=== PATIENT | male | born 1995 | race Caucasian/White ===

== ENCOUNTER 2016-11-05 16:24 | Emergency (ER) | payer OTHER ==
[~2016-11-05] VITALS: Ht 157.5 cm; Wt 78.0 kg
[2016-11-05 16:26] VITALS: Ht 157.5 cm; Wt 78.0 kg
[2016-11-05] MEDS ORDERED: LIDOCAINE 2% (MDV) 20 ML INJ INJ ONE (18:00)
[2016-11-05] MEDS ORDERED: ACET500C5 PO (18:41)
[2016-11-05 18:55] VITALS: BP 129/95; PULSE 64; RESP 16; TEMP 99
--- NOTE | 2016-11-05 23:32 | ERD ---
ER Documentation Chief Complaint Date/Time DATE: 11/05/16 TIME: 23:25 Chief Complaint BELOW LOWER LIP LAC HPI 21-year-old male patient with no significant past medical history presents to the ED complaining of a laceration noted below his lip. States that he was at work and actually ducked down and hit the pole region on his chin region. States that he bit into his lower lip and sustained a laceration. Denies any headache or loss of consciousness. Denies any fever, chills, neck pain, nausea , neck pain, vomiting, weakness, numbness or tingling. Denies taking any blood thinners. States that he is up to date with his tetanus vaccine. ROS All systems reviewed and are negative except as per history of present illness. Medications Home Meds Active Scripts Acetaminophen* (Tylophen*) 500 Mg Capsule, 1 CAP PO Q6H Y for PAIN AND OR ELEVATED TEMP, #20 CAP Prov:CATRACHITA BUCKNER PA-C 11/05/16 Allergies Allergies: Coded Allergies: No Known Allergy (Unverified , 11/05/16) PMhx/Soc Medical and Surgical Hx: pt denies Medical Hx, pt denies Surgical Hx History of Surgery: No Anesthesia Reaction: No Hx Neurological Disorder: No Hx Respiratory Disorders: No Hx Cardiac Disorders: No Hx Psychiatric Problems: No Hx Miscellaneous Medical Probl: No Hx Alcohol Use: No Hx Substance Use: No Hx Tobacco Use: No Smoking Status: Never smoker Physical Exam Vitals Vital Signs Date Time Temp Pulse Resp B/P Pulse Ox O2 Delivery O2 Flow Rate FiO2 11/05/16 18:55 99.0 64 16 129/95 98 Room Air 11/05/16 16:26 98.1 81 20 128/72 99 Physical Exam Const: [id number]-[id number], well-nourished. In no acute distress. Head: Atraumatic, normocephalic. Eyes: Normal Conjunctiva without injection. No purulent discharge. PERRLA. EOMI ENT: Normal external ear. Ear canal without erythema. Tympanic membrane pearly rodney without effusion or bulging. Nasal canal clear with normal turbinates. Moist oropharynx without tonsillar exudates. Non-erythematous pharynx. Uvula midline. No drooling. No trismus. Neck: No cervical midline tenderness. Full range of motion. No meningismus. No cervical lymphadenopathy. No JVD. Resp: Clear to auscultation bilaterally. No wheezing, rhonchi, rales, or crackles. No accessory muscle use. No retractions. Cardio: Regular rate and rhythm. No murmurs, rubs or gallops. Abd: Soft, non tender, non distended. Normal bowel sounds. No palpable masses. No rebound tenderness. No guarding. Negative McBurney's Point. Negative Che's Sign. Skin: Normal skin turgor. No petechiae or rashes. 1 cm horizontal laceration noted on mandible below lower lip. Minimal bleeding noted. No surrounding erythema, edema, fluctuance, induration. Back: No midline tenderness. No CVA tenderness. Ext: No cyanosis, or edema. Distal pulses intact bilaterally. Neur: Awake and alert. Normal gait. Normal coordination. Cranial Nerves II- VII intact. Normal finger to nose. Muscle strength 5/5. Sensation intact. Psych: Normal Mood and Affect Results 24 hrs Current Medications Medications (Trade) Dose Ordered Sig/Loreta Route PRN Reason Start Time Stop Time Status Last Admin Dose Admin Lidocaine (Xylocaine 2% (Mdv) 20 ml) 20 ml ONCE ONCE INJ 11/05/16 18:00 11/05/16 18:01 DC Procedures/MDM 21-year-old male patient with no significant past medical history presents to the ED complaining of a laceration noted at the chin region. Patient is afebrile and nontoxic-appearing. Patient has normal vital signs. Patient gave consent to perform laceration repair. Laceration of the bottom mandibular inferior chin region. Laceration Repair by me: Anesthesia: 4 cc1% lidocaine locally Location: Chin Tendon/Joint/Nerves: No injury Foreign body: None detected after copious irrigation and exploration Technique: 2 6-0 Simple Interrupted Sutures Complexity: No subcutaneous sutures/mucosal repair/ edge excision Post Closure Length: [1] cm Patient's bleeding was easily controlled in the department and there is no indication of anemia. Patient is neurovascularly intact. No evidence of compartment syndrome, neurologic injury, vascular injury, open joint, tendon laceration, or foreign body. Patient is appropriate for outpatient follow up. Low suspicion for intracranial bleed, subarachnoid hemorrhage, epidural hematoma, subdural hematoma, seizure, TIA, stroke, meningitis, carotid dissection or other emergent conditions. 48 hour wound check. Scar minimization instructions given. Instructed patient to return for suture removal in 7-10 days. Discharge medications: Tylenol Follow up with primary care physician in 1-2 days. Instructed patient to return to the ED sooner for any worsening symptoms. Patient's questions were answered. Patient understood and agreed with discharge plan. Patient discharged stable. Departure Diagnosis: Primary Impression: Chin laceration Encounter type: initial encounter Qualified Code: S01.81XA - Chin laceration , initial encounter Condition: Stable Patient Instructions: Laceration, Chin, Suture Or Tape Referrals: [facility] YOU HAVE RECEIVED A MEDICAL SCREENING EXAM AND THE RESULTS INDICATE THAT YOU DO NOT HAVE A CONDITION THAT REQUIRES URGENT TREATMENT IN THE EMERGENCY DEPARTMENT. FURTHER EVALUATION AND TREATMENT OF YOUR CONDITION CAN WAIT UNTIL YOU ARE SEEN IN YOUR DOCTORS OFFICE WITHIN THE NEXT 1-2 DAYS. IT IS YOUR RESPONSIBILITY TO MAKE AN APPOINTMENT FOR FOLOW-UP CARE. IF YOU HAVE A PRIMARY DOCTOR --you should call your primary doctor and schedule an appointment IF YOU DO NOT HAVE A PRIMARY DOCTOR YOU CAN CALL OUR PHYSICIAN REFERRAL HOTLINE AT IF YOU CAN NOT AFFORD TO SEE A PHYSICIAN YOU CAN CHOSE FROM THE FOLLOWING [facility] [address] [facility]. [facility] [address] [facility] DISTRICT[facility] [employer] [facility]. [facility] [address] [facility] [facility] [address] [facility] [facility] [address] [facility]. [facility]. [address] [facility]. [facility] YOU HAVE RECEIVED A MEDICAL SCREENING EXAM AND THE RESULTS INDICATE THAT YOU DO NOT HAVE A CONDITION THAT REQUIRES URGENT TREATMENT IN THE EMERGENCY DEPARTMENT. FURTHER EVALUATION AND TREATMENT OF YOUR CONDITION CAN WAIT UNTIL YOU ARE SEEN IN YOUR DOCTORS OFFICE WITHIN THE NEXT 1-2 DAYS. IT IS YOUR RESPONSIBILITY TO MAKE AN APPOINTMENT FOR FOLOW-UP CARE. IF YOU HAVE A PRIMARY DOCTOR --you should call your primary doctor and schedule and appointment IF YOU DO NOT HAVE A PRIMARY DOCTOR YOU CAN CALL OUR PHYSICIAN REFERRAL HOTLINE AT . IF YOU CAN NOT AFFORD TO SEE A PHYSICIAN YOU CAN CHOSE FROM THE FOLLOWING [facility] INSTITUTIONS: [facility] [address] [place] [address] [facility] [address] [place] [address] [facility] [address] [place] [address] [facility] URGENT CARE/SPECIALTIES Additional Instructions: Follow up in 2 days in your clinic for wound check. Follow up with your physician to remove the stitches:For Face wounds 5-7 days.For Elsewhere on the body 7-10 days. Return to this facility if you are not improving as expected. CATRACHITA BUCKNER PA-C November 05, 2016 23:32
== END 2016-11-05 18:57 | disposition home or self-care (01) ==
LOC: FTE 16:24
DX: S01.81XA Laceration without foreign body of other part of head, initial encounter (principal); W22.8XXA Striking against or struck by other objects, initial encounter; Y92.89 Other specified places as the place of occurrence of the external cause
CPT/HCPCS: 12011; Z7502; Z7610